=== PATIENT | male | born 1990 | race Hispanic/Latino ===

== ENCOUNTER 2018-01-31 22:37 | Emergency (ER) | payer BC ==
[2018-01-31] MEDS ORDERED: Adacel (T-DAP) 0.5 ML VIAL ONE (22:41)
[2018-01-31] MEDS ORDERED: CEFAZOLIN/Water 2 GM/20 ML SYRINGE ONE (22:44)
--- NOTE | 2018-01-31 22:59 | RAD ---
TWO VIEWS OF THE RIGHT FOREARM: 01/31/18 INDICATION: Trauma. IMPRESSION: No acute fracture or subluxation is evident. There is a bandage overlying the volar and ulnar aspect of the distal forearm. No radiopaque foreign body is evident. POS: [facility]
[2018-01-31] MEDS ORDERED: Lidocaine 1% w/Epinephrine 1:100K 20 ML VIAL ONE (23:03)
[2018-02-01] MEDS ORDERED: Bacitracin Zinc 1 Packet ONE (00:16)
== END 2018-02-01 01:01 | disposition home or self-care (01) ==
LOC: ERS 22:37
DX: S64.91XA Injury of unspecified nerve at wrist and hand level of right arm, initial encounter (principal); F17.290 Nicotine dependence, other tobacco product, uncomplicated; Z23 Encounter for immunization; W25.XXXA Contact with sharp glass, initial encounter
CPT/HCPCS: 12002; 90471; 90715; 96374; G0390; J2001